=== PATIENT | female | born 1980 | race Asian ===

== ENCOUNTER 2017-07-31 05:40 | Inpatient (IN) | payer OTHER ==
[~2017-07-31] VITALS: Ht 165.1 cm; Wt 83.1 kg
[2017-07-31] MEDS ORDERED: LACTATED RINGERS 1,000 ML IV SCH ×3 (05:51→07:32)
[2017-07-31] MEDS ORDERED: OXYTOCIN 30U/ 0.9% NaCL 500ML 500 ML IV SCH (05:51)
[2017-07-31] MEDS ORDERED: SODIUM CITRATE/CITRIC ACID 30 ML UDC ONE (05:58)
[2017-07-31] MEDS ORDERED: NEWBORN KIT ONE (05:58)
[2017-07-31] MEDS ORDERED: METOCLOPRAMIDE 5 MG/ML, 2ML ONE (05:59)
[2017-07-31] MEDS ORDERED: SODIUM CITRATE/CITRIC ACID 30 ML UDC PO ONE (06:00)
[2017-07-31] MEDS ORDERED: LACTATED RINGERS 1,000 ML IVBOLUS ONE (06:00)
[2017-07-31] MEDS ORDERED: METOCLOPRAMIDE 5 MG/ML, 2ML IV ONE (06:00)
[2017-07-31 06:32] LABS: HEMATOCRIT 34.6 % (34.6-47.8); HEMOGLOBIN 11.6 g/dL (11.7-16.4); WHITE BLOOD COUNT 9.4 x10^3/uL (3.4-10)
[2017-07-31] MEDS ORDERED: PREN1TAB60 PO (06:42)
[2017-07-31] MEDS ORDERED: FLUO40CA9 PO (06:43)
[2017-07-31] MEDS ORDERED: PLEASE ENTER ALLERGIES MC SCH ×2 (07:00)
[2017-07-31] MEDS ORDERED: FENTANYL PF 100 MCG/2ML ONE (07:15)
[2017-07-31] MEDS ORDERED: ONDANSETRON 2MG/ML, 2ML ONE (07:15)
[2017-07-31] MEDS ORDERED: CEFAZOLIN 1,000 MG ONE (07:15)
[2017-07-31] MEDS ORDERED: OXYTOCIN 10 UNITS/ML, 1ML ONE (07:15)
[2017-07-31] MEDS ORDERED: HYDROmorphone 2 MG/ML, 1ML ONE ×2 (07:16→07:17)
[2017-07-31] MEDS: OXYTOCIN 30U/ 0.9% NaCL 500ML 500 ML IV SCH ×2 (07:32→19:00)
[2017-07-31] MEDS ORDERED: MEPERIDINE/PF 50 MG/ML IM PRN (08:00)
[2017-07-31] MEDS ORDERED: IBUPROFEN 600 MG TABLET PO PRN (08:00)
[2017-07-31] MEDS ORDERED: OXYcodone/APAP 5/325MG TABLET PO PRN ×2 (08:00)
[2017-07-31] MEDS ORDERED: BISACODYL 10 MG SUPP PR PRN (08:00)
[2017-07-31] MEDS ORDERED: ACETAMINOPHEN 325 MG TABLET PO PRN (08:00)
[2017-07-31] MEDS ORDERED: ONDANSETRON 2MG/ML, 2ML IV PRN (08:00)
[2017-07-31] MEDS ORDERED: MEPERIDINE/PF 25MG/0.5ML IM PRN (08:00)
[2017-07-31] MEDS ORDERED: KETOROLAC 30 MG/1 ML IV PRN (08:00)
[2017-07-31] MEDS ORDERED: METOCLOPRAMIDE 5 MG/ML, 2ML IV PRN (08:00)
[2017-07-31] MEDS ORDERED: MISOPROSTOL 200 MCG TABLET PR PRN (08:00)
[2017-07-31] MEDS ORDERED: CARBOPROST TROMETHAMINE 250 MCG/ML, 1ML IM PRN (08:00)
[2017-07-31] MEDS ORDERED: METHYLERGONOVINE 0.2 MG/ML IM PRN (08:00)
[2017-07-31] MEDS ORDERED: OXYTOCIN 30U/ 0.9% NaCL 500ML 500 ML ONE (08:56)
[2017-07-31] MEDS: LACTATED RINGERS 1,000 ML IV SCH ×2 (09:36→19:00)
[2017-07-31] MEDS ORDERED: KETOROLAC 30 MG/1 ML ONE (10:17)
[2017-07-31] MEDS: KETOROLAC 30 MG/1 ML IV SCH ×3 (10:46→22:11)
[2017-07-31 11:15] VITALS: BP 134/85
[2017-07-31] MEDS: PRENATAL VIT/IRON/FA 1 EACH TABLET PO SCH (11:15)
[2017-07-31] MEDS: DOCUSATE 100 MG CAPSULE PO PRN ×2 (12:12→22:11)
[2017-07-31] MEDS: HYDROcodone/APAP 5/325 TABLET PO PRN ×4 (12:13→22:11)
[2017-07-31 16:00] VITALS: BP 134/83
[2017-07-31 16:21] LABS: HEMATOCRIT 34.8 % (34.6-47.8); HEMOGLOBIN 11.7 g/dL (11.7-16.4); WHITE BLOOD COUNT 13.2 x10^3/uL (3.4-10)
[2017-07-31 20:10] VITALS: BP 130/83
[2017-08-01 00:05] VITALS: BP 133/84
[2017-08-01] MEDS: HYDROcodone/APAP 5/325 TABLET PO PRN ×4 (03:24→16:28)
[2017-08-01] MEDS: LACTATED RINGERS 1,000 ML IV SCH ×3 (03:32→23:32)
[2017-08-01] MEDS: OXYTOCIN 30U/ 0.9% NaCL 500ML 500 ML IV SCH ×3 (03:32→23:32)
[2017-08-01] MEDS: KETOROLAC 30 MG/1 ML IV SCH ×4 (04:47→22:18)
[2017-08-01 04:51] VITALS: BP 126/80
[2017-08-01] MEDS: DOCUSATE 100 MG CAPSULE PO PRN ×2 (07:45→22:18)
[2017-08-01] MEDS: PRENATAL VIT/IRON/FA 1 EACH TABLET PO SCH (07:50)
[2017-08-01 08:00] VITALS: BP 125/90
[2017-08-01 19:30] VITALS: BP 128/87
[2017-08-02] MEDS: KETOROLAC 30 MG/1 ML IV SCH (04:16)
[2017-08-02 07:40] VITALS: BP 139/88
[2017-08-02] MEDS ORDERED: OXYC-302 PO (11:05)
[2017-08-02] MEDS ORDERED: IBUP-1222 PO (11:05)
[2017-08-02] MEDS ORDERED: DOCU-131 PO (11:05)
== END 2017-08-02 11:45 | disposition home or self-care (01) | DRG 766 ==
LOC: LDIP 05:40 → 2NW 11:10
PROVIDERS: ADMIT Obstetrics & Gynecology; ATTEND Obstetrics & Gynecology
PROC: 10D00Z1 Extraction of Products of Conception, Low, Open Approach (ICD-10-PCS; principal; 2017-07-31)
DX: O34.211 Maternal care for low transverse scar from previous cesarean delivery (principal); F32.9 Major depressive disorder, single episode, unspecified; O99.344 Other mental disorders complicating childbirth; Z37.0 Single live birth; Z3A.39 39 weeks gestation of pregnancy; Z79.899 Other long term (current) drug therapy
CPT/HCPCS: 36415; 85025; 86850; 86900; J0690; J1170; J1885; J2405; J3010; J2590; J2765; J7120

== ENCOUNTER → 2018-02-05 | Outpatient (CLI) | payer OTHER ==
[~2018-02-05] MED LIST: DOCU-131 PO; FLUO40CA9 PO; IBUP-1222 PO; OXYC-302 PO; PREN1TAB60 PO
== END ==
LOC: CFH 15:49
PROVIDERS: ATTEND Orthopaedic Surgery
DX: M25.859 Other specified joint disorders, unspecified hip (principal); R59.0 Localized enlarged lymph nodes; G89.29 Other chronic pain

== ENCOUNTER → 2018-07-25 | Outpatient (CLI) | payer OTHER ==
[2018-07-25 09:37] LABS: BASOPHILS # (AUTO) 0.02 x10^3/uL (0-0.1); BASOPHILS % (AUTO) 1 % (0-1); EOSINOPHILS # (AUTO) 0.29 x10^3/uL (0-0.4); EOSINOPHILS % (AUTO) 6 % (1-7); LYMPHOCYTES # (AUTO) 1.64 x10^3/uL (1-3.4); LYMPHOCYTES % (AUTO) 33 % (22-44); MD NO; MEAN CORPUSCULAR HEMOGLOBIN 28.2 pg (27.0-34.8); MEAN CORPUSCULAR HGB CONC 33.5 g/dL (32.4-35.8); MEAN CORPUSCULAR VOLUME 84.3 fL (80-100); MEAN PLATELET VOLUME 8.5 fL (7.4-10.4); MONOCYTES # (AUTO) 0.39 x10^3/uL (0.2-0.8); MONOCYTES % (AUTO) 8 % (2-9); NEUTROPHILS # (AUTO) 2.57 x10^3/uL (1.8-6.8); NEUTROPHILS % (AUTO) 52 % (42-75); PLATELET COUNT 247 x10^3/uL (130-400); RED BLOOD COUNT 5.09 x10^6/uL (3.82-5.3); RED CELL DISTRIBUTION WIDTH 13.8 % (9.6-15.2)
[2018-07-25 09:54] LABS: ALBUMIN 4.2 g/dL (3.4-5.0); ANION GAP 6 mmol/L (5-15); CALCIUM 8.8 mg/dL (8.5-10.1); CHLORIDE 105 mmol/L (98-107)
[2018-07-25 10:19] LABS: ALANINE AMINOTRANSFERASE 36 U/L (12-78); ALKALINE PHOSPHATASE 101 U/L (45-117); BILIRUBIN,TOTAL 0.4 mg/dL (0.2-1.0); CHOLESTEROL, TOTAL 148 mg/dL (140-239); CREATININE 0.85 mg/dL (0.55-1.02); FREE T4 (FREE THYROXINE) 1.05 ng/dL (0.76-1.46); HDL CHOL % 51 % (28-40); HDL CHOLESTEROL (DIRECT) 75 mg/dL (40-60); LDL CHOLESTEROL,CALCULATED 66 mg/dL (54-169); LDL/HDL RATIO 0.9 (0.5-3.0); TOTAL PROTEIN 7.6 g/dL (6.4-8.2); TRIGLYCERIDES 37 mg/dL (50-200); VLDL CHOLESTEROL 7 mg/dL (0-25)
[2018-07-25 10:22] LABS: FOLATE LEVEL > 20.0 ng/mL (3.1-17.5)
== END | disposition home or self-care (01) ==
LOC: LAB 09:19
PROVIDERS: ATTEND Psychiatry & Neurology Psychiatry
DX: Z79.899 Other long term (current) drug therapy (principal)
CPT/HCPCS: 36415; 80053; 80061; 82306; 82607; 82746; 84439; 84443; 85025

== ENCOUNTER → 2020-06-16 | Outpatient (CLI) | payer OTHER | END | disposition home or self-care (01) | LOC: CFH 14:56 | PROVIDERS: ATTEND Family Medicine | DX: Z12.31 Encounter for screening mammogram for malignant neoplasm of breast (principal) | CPT/HCPCS: 77063; 77067 ==

== ENCOUNTER 2020-07-05 12:42 | Outpatient (CLI) | payer OTHER | END 2020-07-05 23:59 | disposition home or self-care (01) | LOC: CFH 12:42 | PROVIDERS: ATTEND Family Medicine | DX: R92.1 Mammographic calcification found on diagnostic imaging of breast (principal) | CPT/HCPCS: 77065 ==

== ENCOUNTER 2020-08-18 09:06 | Outpatient (CLI) | payer OTHER ==
[2020-08-18 11:01] LABS: BASOPHILS % (AUTO) 1 % (0-1); EOSINOPHILS % (AUTO) 5 % (1-7); LYMPHOCYTES % (AUTO) 27 % (22-44); MEAN CORPUSCULAR HEMOGLOBIN 29.4 pg (27.0-34.8); MEAN CORPUSCULAR HGB CONC 33.3 g/dL (32.4-35.8); MEAN PLATELET VOLUME 8.1 fL (7.4-10.4); MONOCYTES % (AUTO) 7 % (2-9); NEUTROPHILS % (AUTO) 60 % (42-75); PLATELET COUNT 265 x10^3/uL (130-400); RED BLOOD COUNT 4.94 x10^6/uL (3.82-5.3); RED CELL DISTRIBUTION WIDTH 13.2 % (9.6-15.2)
[2020-08-18 11:02] LABS: MD NO
[2020-08-18 11:04] LABS: HCT (SEDRATE) 43.6 % (34.6-47.8)
[2020-08-18 11:05] LABS: ALBUMIN 4.1 g/dL (3.4-5.0); ANION GAP 5 mmol/L (5-15); CALCIUM 8.8 mg/dL (8.5-10.1); CHLORIDE 105 mmol/L (98-107)
[2020-08-18 11:19] LABS: ALANINE AMINOTRANSFERASE 27 U/L (12-78); ALKALINE PHOSPHATASE 60 U/L (45-117); BILIRUBIN,TOTAL 0.4 mg/dL (0.2-1.0); CREATININE 0.86 mg/dL (0.55-1.02); TOTAL PROTEIN 7.5 g/dL (6.4-8.2)
== END 2020-08-18 23:59 | disposition home or self-care (01) ==
LOC: LAB 09:06
PROVIDERS: ATTEND Nurse Practitioner
DX: J30.9 Allergic rhinitis, unspecified (principal); L50.9 Urticaria, unspecified
CPT/HCPCS: 36415; 80053; 82785; 83520; 84443; 85025; 85651; 86003; 86038; 86160; 86352